=== PATIENT | female | born 1970 | race African-American/Black ===

== ENCOUNTER 2021-06-24 23:14 | Emergency (ER) | payer OTHER ==
[~2021-06-24] VITALS: Ht 157.5 cm; Wt 91.0 kg
[2021-06-24 23:17] VITALS: BP 149/98
== END 2021-06-25 05:46 | disposition left against medical advice (07) ==
LOC: ER 23:14
DX: R06.02 Shortness of breath (principal); R07.89 Other chest pain; I10 Essential (primary) hypertension; Z53.21 Procedure and treatment not carried out due to patient leaving prior to being seen by health care provider
CPT/HCPCS: 93005